=== PATIENT | female | born 1945 | race African-American/Black ===

== ENCOUNTER 2021-09-25 17:31 | Emergency (ER) | payer OTHER, MEDICAID ==
[~2021-09-25] VITALS: Ht 142.2 cm; Wt 71.0 kg
[2021-09-25] MEDS ORDERED: CYCLOBENZAPRINE 10MG TABLET PO SCH (18:00)
[2021-09-25 18:14] LABS: BASOPHILS % 0.4 % (0.0-2.0); EOSINOPHILS % 10.5 % (0.0-5.0); HEMATOCRIT. 34.3 % (36.0-48.0); HEMOGLOBIN. 11.4 g/dL (12.0-16.0); LYMPHOCYTES % 26.2 % (20.0-50.0); MEAN CORPUSCULAR HEMOGLOBIN 26.8 pg (28.0-32.0); MEAN CORPUSCULAR VOLUME 81.1 fL (81.0-99.0); MEAN PLATELET VOLUME 7.1 fl (7.4-10.4); MONOCYTES % 10.8 % (2.0-8.0); NEUTROPHILS % 52.1 % (40.0-76.0); PLATELET 332 x1000/uL (130-400); RED BLOOD CELL COUNT 4.23 mill/uL (4.2-5.4); RED CELL DISTRIBUTION WIDTH 16.7 % (11.6-14.6)
[2021-09-25 18:19] LABS: CHLORIDE 100 mEq/L (98-107)
[2021-09-25 19:11] LABS: CLARITY URINE CLEAR (CLEAR); COLOR URINE YELLOW (YELLOW); KETONES URINE NEGATIVE (NEGATIVE); LEUKOCYTE ESTERASE URINE TRACE (NEGATIVE); NITRITE URINE NEGATIVE (NEGATIVE); OCCULT BLOOD URINE NEGATIVE (NEGATIVE); PROTEIN URINE NEGATIVE (NEGATIVE); SPECIFIC GRAVITY URINE 1.005 (1.005-1.030); UROBILINOGEN URINE 0.2 E.U./dL (0.2-1.0)
[2021-09-25] MEDS ORDERED: HYDROCHLOROTHIAZIDE 25MG TABLET PO ONE (19:15)
[2021-09-25] MEDS ORDERED: CYCL5TAB PO (19:42)
[2021-09-25] MEDS ORDERED: NAPR-1176 MT (19:42)
[2021-09-25] MEDS ORDERED: AMMO140C2 TP (20:00)
[2021-09-25 20:30] VITALS: BP 155/82
== END 2021-09-25 20:32 | disposition home or self-care (01) ==
LOC: ER 17:31
DX: S39.012A Strain of muscle, fascia and tendon of lower back, initial encounter (principal); I10 Essential (primary) hypertension; D64.9 Anemia, unspecified; J45.909 Unspecified asthma, uncomplicated; X58.XXXA Exposure to other specified factors, initial encounter; Y93.89 Activity, other specified; Y92.018 Other place in single-family (private) house as the place of occurrence of the external cause
CPT/HCPCS: 36415; 71045; 80053; 81003; 83880; 84484; 85025; 99284